=== PATIENT | female | born 1960 | race Caucasian/White ===

== ENCOUNTER 2018-08-29 20:11 | Inpatient (IN) | payer OTHER ==
[~2018-08-29] VITALS: Ht 160 cm; Wt 144.1 kg
[~2018-08-29 20:11] MED LIST: ASPI325T4 PO; CARV3.1240 PO; CLOP75TA28 PO; COMIH INH; ESCI5TAB PO; IBUP800T24 PO; LIS10T PO; NOR7.5T PO; SIMV5TAB50 PO
[2018-08-29] MEDS ORDERED: IPRATROPIUM BROM 0.5 MG/2.5ML INH SOL ONE (21:14)
[2018-08-29] MEDS ORDERED: methylPREDNISolone SOD SUCC 125 MG/2 ML VL IV ONE (21:15)
[2018-08-29] MEDS ORDERED: IPRATROPIUM BROM 0.5 MG/2.5ML INH SOL HHN ONE (21:15)
[2018-08-29] MEDS ORDERED: FUROSEMIDE 40 MG/4 ML VIAL IV ONE (21:15)
[2018-08-29] MEDS ORDERED: ALBUTEROL SULF 2.5 MG/0.5ML(0.5%) NEB SOLN HHN ONE (21:15)
[2018-08-29 21:45] LABS: Basophils # (auto) 0.1 uL; Basophils % (auto) 1.1 % (0.0-2.0); Eosinophils # (auto) 0.1 uL; Eosinophils % (auto) 2.1 % (0.0-7.0); Hematocrit 36.5 % (36.0-46.0); Hemoglobin 12.2 g/dL (12.2-16.2); Lymphocytes # (auto) 1.7 uL; Lymphocytes % (auto) 25.5 % (10.0-50.0); Mean Corpuscular Hgb Conc. 33.4 g/dL (32.0-36.0); Mean Corpuscular Volume 89.8 fL (80.0-100.0); Monocytes # (auto) 0.5 uL; Monocytes % (auto) 7.4 % (0.0-12.0); Neutrophils # (auto) 4.3 uL; Neutrophils % (auto) 63.9 % (37.0-80.0); Platelet Count (auto) 184 10^3/uL (140-450); Red Blood Cells 4.06 10^6/uL (4.0-5.20); Red Cell Distribution Width 14.4 % (11.8-14.3); White Blood Cell 6.8 10^3/uL (4.4-10.8)
[2018-08-29 22:03] LABS: Alanine Aminotransferase 29 U/L (13-56); Albumin 3.1 g/dL (3.4-5.0); Anion Gap 4 (5-15); Aspartate Aminotransferase 15 U/L (15-37); BUN/Creatinine Ratio 26.9; Blood Urea Nitrogen 25 mg/dL (7-18); Carbon Dioxide 27 mmol/L (21-32); Chloride 112 mmol/L (98-107); GFR African American 79 mL/min; GFR Non-African American 65 mL/min; Glucose 129 mg/dL (74-106); Potassium 4.3 mmol/L (3.5-5.1); Sodium 143 mmol/L (136-145)
[2018-08-29 22:08] LABS: Alkaline Phosphatase 97 U/L (45-117); Bilirubin, Total 0.4 mg/dL (0.2-1.0); Total Protein 6.8 g/dL (6.4-8.2)
[2018-08-29 22:45] LABS: Urine Bacteria FEW /hpf (None Seen); Urine Blood Negative /uL (Negative); Urine Mucus FEW (None Seen); Urine Specific Gravity 1.009 (1.001-1.035); Urine WBC 2 /hpf (0 - 5)
[2018-08-30] MEDS ORDERED: ONDANSETRON HCL 4 MG/2 ML VIAL IV PRN (04:00)
[2018-08-30] MEDS ORDERED: ACETAMINOPHEN 500 MG TAB PO PRN (04:00)
[2018-08-30 04:09] VITALS: BP 139/74
[2018-08-30] MEDS: HYDROcodone-ACET 5/325MG TAB PO PRN ×2 (05:04→11:50)
[2018-08-30] MEDS: IPRATROPIUM BROM 0.5 MG/2.5ML INH SOL NEB SCH ×5 (05:30→22:24)
[2018-08-30] MEDS: ALBUTEROL SULF 2.5 MG/0.5ML(0.5%) NEB SOLN NEB SCH ×5 (05:30→22:24)
[2018-08-30 07:21] LABS: Basophils # (auto) 0 uL; Basophils % (auto) 0.1 % (0.0-2.0); Eosinophils # (auto) 0 uL; Hematocrit 37.9 % (36.0-46.0); Lymphocytes # (auto) 0.8 uL; Lymphocytes % (auto) 11.2 % (10.0-50.0); Mean Corpuscular Hemoglobin 30.9 pg (28.0-32.0); Mean Corpuscular Hgb Conc. 34.4 g/dL (32.0-36.0); Mean Corpuscular Volume 89.7 fL (80.0-100.0); Monocytes # (auto) 0 uL; Monocytes % (auto) 0.7 % (0.0-12.0); Neutrophils # (auto) 6.2 uL; Nucleated Red Blood Cells % 0.5 %; Platelet Count (auto) 193 10^3/uL (140-450); Red Blood Cells 4.22 10^6/uL (4.0-5.20); Red Cell Distribution Width 14.2 % (11.8-14.3)
[2018-08-30 07:29] LABS: Calcium 10.6 mg/dL (8.5-10.1); Potassium 4.1 mmol/L (3.5-5.1)
[2018-08-30] MEDS: CARVEDILOL 3.125 MG TAB PO SCH ×2 (08:42→18:00)
[2018-08-30] MEDS ORDERED: ASPirin-EC 325mg tab PO SCH (10:00)
[2018-08-30] MEDS: CLOPIDOGREL BISULFATE 75 MG TAB PO SCH (10:00)
[2018-08-30] MEDS: LISINOPRIL 10 MG TAB PO SCH (10:00)
[2018-08-30] MEDS: FUROSEMIDE 40 MG/4 ML VIAL IV SCH (10:00)
[2018-08-30 13:00] VITALS: BP 125/55
[2018-08-30] MEDS ORDERED: PANTOPRAZOLE 40 MG TAB PO ONE (14:45)
[2018-08-30 16:54] VITALS: BP 115/60
[2018-08-30 20:14] VITALS: BP 117/73
[2018-08-30] MEDS: THROAT LOZENGES(CEPASTAT) MT PRN (23:02)
[2018-08-31] MEDS: ALBUTEROL SULF 2.5 MG/0.5ML(0.5%) NEB SOLN NEB SCH ×6 (02:00→22:06)
[2018-08-31] MEDS: IPRATROPIUM BROM 0.5 MG/2.5ML INH SOL NEB SCH ×6 (02:00→22:06)
[2018-08-31 04:33] VITALS: BP 107/78
[2018-08-31 05:52] LABS: Basophils # (auto) 0 uL; Basophils % (auto) 0.4 % (0.0-2.0); Eosinophils # (auto) 0 uL; Eosinophils % (auto) 0.4 % (0.0-7.0); Hematocrit 38.2 % (36.0-46.0); Hemoglobin 12.9 g/dL (12.2-16.2); Lymphocytes # (auto) 2.4 uL; Lymphocytes % (auto) 22.5 % (10.0-50.0); Mean Corpuscular Hemoglobin 30.4 pg (28.0-32.0); Mean Corpuscular Hgb Conc. 33.6 g/dL (32.0-36.0); Mean Corpuscular Volume 90.4 fL (80.0-100.0); Monocytes # (auto) 0.6 uL; Monocytes % (auto) 6.1 % (0.0-12.0); Neutrophils # (auto) 7.5 uL; Neutrophils % (auto) 70.6 % (37.0-80.0); Platelet Count (auto) 193 10^3/uL (140-450); Red Blood Cells 4.23 10^6/uL (4.0-5.20); Red Cell Distribution Width 14.5 % (11.8-14.3); White Blood Cell 10.6 10^3/uL (4.4-10.8)
[2018-08-31 06:31] LABS: Anion Gap 6 (5-15); BUN/Creatinine Ratio 27.3; Blood Urea Nitrogen 30 mg/dL (7-18); Calcium 10.3 mg/dL (8.5-10.1); Carbon Dioxide 31 mmol/L (21-32); Chloride 102 mmol/L (98-107); Cholesterol 165 mg/dL (< 200); GFR African American 65 mL/min; GFR Non-African American 54 mL/min; Glucose 126 mg/dL (74-106); Magnesium 2.2 mg/dL (1.6-2.6); Potassium 4.2 mmol/L (3.5-5.1); Sodium 139 mmol/L (136-145); Triglycerides 68 mg/dL (< 150)
[2018-08-31 06:36] LABS: HDL Cholesterol 61 mg/dL (40-59); LDL Cholesterol 98 mg/dL (< 100)
[2018-08-31 08:15] VITALS: BP 132/72
[2018-08-31] MEDS: CARVEDILOL 3.125 MG TAB PO SCH ×2 (08:30→18:00)
[2018-08-31] MEDS: PANTOPRAZOLE 40 MG TAB PO SCH (10:00)
[2018-08-31] MEDS: FUROSEMIDE 40 MG/4 ML VIAL IV SCH (10:00)
[2018-08-31] MEDS: LISINOPRIL 10 MG TAB PO SCH (10:00)
[2018-08-31] MEDS: ENOXAPARIN SOD 40 MG/0.4 ML SYRINGE SC SCH (10:00)
[2018-08-31] MEDS: CLOPIDOGREL BISULFATE 75 MG TAB PO SCH (10:00)
[2018-08-31] MEDS ORDERED: ASPirin-EC 325mg tab PO SCH (10:00)
[2018-08-31 13:00] VITALS: BP 130/74
[2018-08-31] MEDS: THROAT LOZENGES(CEPASTAT) MT PRN ×2 (14:14→22:00)
[2018-08-31] MEDS: HYDROcodone-ACET 5/325MG TAB PO PRN (14:14)
[2018-08-31 16:58] VITALS: BP 94/63
[2018-08-31 22:00] VITALS: BP 79/49
[2018-09-01] MEDS: IPRATROPIUM BROM 0.5 MG/2.5ML INH SOL NEB SCH ×6 (02:00→22:24)
[2018-09-01] MEDS: ALBUTEROL SULF 2.5 MG/0.5ML(0.5%) NEB SOLN NEB SCH ×6 (02:00→22:24)
[2018-09-01 05:00] VITALS: BP 126/72
[2018-09-01 06:04] LABS: BUN/Creatinine Ratio 29.6; Calcium 10.4 mg/dL (8.5-10.1); Potassium 4.8 mmol/L (3.5-5.1)
[2018-09-01] MEDS: CARVEDILOL 3.125 MG TAB PO SCH ×2 (08:00→18:00)
[2018-09-01 08:44] VITALS: BP 98/46
[2018-09-01] MEDS: ENOXAPARIN SOD 40 MG/0.4 ML SYRINGE SC SCH (09:23)
[2018-09-01] MEDS: PANTOPRAZOLE 40 MG TAB PO SCH (09:24)
[2018-09-01] MEDS: FUROSEMIDE 40 MG/4 ML VIAL IV SCH (09:24)
[2018-09-01] MEDS: CLOPIDOGREL BISULFATE 75 MG TAB PO SCH (09:24)
[2018-09-01] MEDS: LISINOPRIL 10 MG TAB PO SCH (09:31)
[2018-09-01] MEDS: ASPirin-EC 81 mg tab PO SCH (09:50)
[2018-09-01] MEDS: HYDROcodone-ACET 5/325MG TAB PO PRN (09:50)
[2018-09-01 13:00] VITALS: BP 104/54
[2018-09-01] MEDS: SODIUM CHLORIDE 0.9% 1,000 ML IV SCH (14:07)
[2018-09-01] MEDS: THROAT LOZENGES(CEPASTAT) MT PRN (15:46)
[2018-09-01 16:15] VITALS: BP 96/61
[2018-09-01 19:27] VITALS: BP 96/61
[2018-09-01 22:11] VITALS: BP 112/75
[2018-09-02] MEDS: ALBUTEROL SULF 2.5 MG/0.5ML(0.5%) NEB SOLN NEB SCH ×6 (02:20→22:08)
[2018-09-02] MEDS: IPRATROPIUM BROM 0.5 MG/2.5ML INH SOL NEB SCH ×6 (02:20→22:08)
[2018-09-02] MEDS: HYDROcodone-ACET 5/325MG TAB PO PRN ×3 (03:12→22:05)
[2018-09-02] MEDS: THROAT LOZENGES(CEPASTAT) MT PRN ×3 (03:16→21:28)
[2018-09-02] MEDS: SODIUM CHLORIDE 0.9% 1,000 ML IV SCH ×2 (04:25→21:05)
[2018-09-02 05:44] VITALS: BP 94/79
[2018-09-02] MEDS ORDERED: VANCOMYCIN PER PHARMACY 0 MG IV SCH (06:00)
[2018-09-02] MEDS ORDERED: VANCOMYCIN 1GM/250ML 250 ML IV ONE (06:00)
[2018-09-02 07:26] LABS: Albumin 3.2 g/dL (3.4-5.0); BUN/Creatinine Ratio 28.4; Calcium 10.1 mg/dL (8.5-10.1); Potassium 4.4 mmol/L (3.5-5.1)
[2018-09-02 07:29] LABS: Bilirubin, Total 0.7 mg/dL (0.2-1.0); Total Protein 7.1 g/dL (6.4-8.2)
[2018-09-02] MEDS: CARVEDILOL 3.125 MG TAB PO SCH ×2 (08:09→17:30)
[2018-09-02] MEDS: VANCOMYCIN 1,250 MG in D5W 5% 250 ML IV SCH ×2 (08:39→21:05)
[2018-09-02 09:00] VITALS: BP 124/73
[2018-09-02] MEDS: CLOPIDOGREL BISULFATE 75 MG TAB PO SCH (09:35)
[2018-09-02] MEDS: ASPirin-EC 81 mg tab PO SCH (09:35)
[2018-09-02] MEDS: PANTOPRAZOLE 40 MG TAB PO SCH (09:35)
[2018-09-02] MEDS: ENOXAPARIN SOD 40 MG/0.4 ML SYRINGE SC SCH (09:35)
[2018-09-02] MEDS: FUROSEMIDE 20 MG TAB PO SCH (09:36)
[2018-09-02 12:00] VITALS: BP 115/69
[2018-09-02 16:00] VITALS: BP 110/77
[2018-09-02 22:00] VITALS: BP 140/69
[2018-09-03] MEDS: ALBUTEROL SULF 2.5 MG/0.5ML(0.5%) NEB SOLN NEB SCH ×4 (02:26→13:30)
[2018-09-03] MEDS: IPRATROPIUM BROM 0.5 MG/2.5ML INH SOL NEB SCH ×4 (02:27→13:30)
[2018-09-03 05:00] VITALS: BP 109/51
[2018-09-03] MEDS: HYDROcodone-ACET 5/325MG TAB PO PRN (06:41)
[2018-09-03 07:51] LABS: Albumin 3.2 g/dL (3.4-5.0); BUN/Creatinine Ratio 22.2; Calcium 10.4 mg/dL (8.5-10.1); Potassium 4.5 mmol/L (3.5-5.1)
[2018-09-03 07:54] LABS: Bilirubin, Total 0.8 mg/dL (0.2-1.0); Total Protein 7.1 g/dL (6.4-8.2)
[2018-09-03 08:00] VITALS: BP 112/65
[2018-09-03 09:00] VITALS: BP 123/82
[2018-09-03] MEDS: PANTOPRAZOLE 40 MG TAB PO SCH (09:15)
[2018-09-03] MEDS: ASPirin-EC 81 mg tab PO SCH (09:16)
[2018-09-03] MEDS: CLOPIDOGREL BISULFATE 75 MG TAB PO SCH (09:16)
[2018-09-03] MEDS: FUROSEMIDE 20 MG TAB PO SCH (09:17)
[2018-09-03] MEDS: CARVEDILOL 3.125 MG TAB PO SCH ×2 (09:17→17:35)
[2018-09-03] MEDS: ENOXAPARIN SOD 40 MG/0.4 ML SYRINGE SC SCH (09:18)
[2018-09-03] MEDS: VANCOMYCIN 1,250 MG in D5W 5% 250 ML IV SCH (09:23)
[2018-09-03] MEDS ORDERED: FUR20T PO (11:42)
[2018-09-03] MEDS ORDERED: AMOX-263 PO (11:42)
[2018-09-03] MEDS ORDERED: METF-370 PO (11:48)
[2018-09-03] MEDS ORDERED: metFORMIN HYDROCHLORIDE 500 MG TAB PO ONE (12:00)
[2018-09-03] MEDS ORDERED: AMOXICILLIN/CLAVUL 875 MG TAB PO ONE (12:00)
[2018-09-03 12:58] VITALS: BP 124/71
[2018-09-03 13:07] VITALS: BP 123/82
[2018-09-03] MEDS: SODIUM CHLORIDE 0.9% 1,000 ML IV SCH (13:45)
[2018-09-03 17:00] VITALS: BP 118/72
== END 2018-09-03 18:46 | disposition home health service (06) | DRG 291 ==
LOC: EDBD 20:11 → ER 20:21 → TELE 20:22 → TELE-EAST 08-30 10:38
PROVIDERS: ADMIT Nurse Practitioner Family; ATTEND Internal Medicine
DX: I11.0 Hypertensive heart disease with heart failure (principal); N17.0 Acute kidney failure with tubular necrosis; J96.20 Acute and chronic respiratory failure, unspecified whether with hypoxia or hypercapnia; E44.1 Mild protein-calorie malnutrition; Z68.43 Body mass index [BMI] 50.0-59.9, adult; I50.43 Acute on chronic combined systolic (congestive) and diastolic (congestive) heart failure; J44.9 Chronic obstructive pulmonary disease, unspecified; E78.5 Hyperlipidemia, unspecified; F32.9 Major depressive disorder, single episode, unspecified; F41.9 Anxiety disorder, unspecified; K21.9 Gastro-esophageal reflux disease without esophagitis; Z99.81 Dependence on supplemental oxygen; Z88.2 Allergy status to sulfonamides; Z88.8 Allergy status to other drugs, medicaments and biological substances; E11.9 Type 2 diabetes mellitus without complications; E66.01 Morbid (severe) obesity due to excess calories; F17.210 Nicotine dependence, cigarettes, uncomplicated; G47.33 Obstructive sleep apnea (adult) (pediatric); I25.10 Atherosclerotic heart disease of native coronary artery without angina pectoris; T50.2X5A Adverse effect of carbonic-anhydrase inhibitors, benzothiadiazides and other diuretics, initial encounter; Y92.89 Other specified places as the place of occurrence of the external cause; Z79.82 Long term (current) use of aspirin; Z82.5 Family history of asthma and other chronic lower respiratory diseases; Z91.19 Patient's noncompliance with other medical treatment and regimen; Z83.511 Family history of glaucoma; I25.2 Old myocardial infarction
CPT/HCPCS: 36415; 36600; 70486; 71045; 80048; 80053; 80061; 81001; 82805; 83036; 83735; 83880; 84484; 85025; 87040; 87077; 87186; 87804; 93005; 93306; 93970; 94640; 96374; 96375; 96376; 97110; 97116; 97530; G0378; J7060

== ENCOUNTER 2018-10-28 18:06 | Emergency (ER) | payer OTHER ==
[~2018-10-28] VITALS: Ht 167.6 cm; Wt 100.7 kg
[~2018-10-28 18:06] MED LIST changes: +AMOX-263 PO; +ATOR20TA PO; -CARV3.1240 PO; +FUR20T PO; +METF-370 PO; -SIMV5TAB50 PO
[2018-10-28 18:19] VITALS: BP 148/72
[2018-10-28 19:45] LABS: Basophils # (auto) 0 uL; Basophils % (auto) 0.3 % (0.0-2.0); Eosinophils # (auto) 0.2 uL; Eosinophils % (auto) 1.7 % (0.0-7.0); Hematocrit 38.2 % (36.0-46.0); Hemoglobin 12.9 g/dL (12.2-16.2); Lymphocytes # (auto) 1.5 uL; Lymphocytes % (auto) 15.3 % (10.0-50.0); Mean Corpuscular Hemoglobin 29.4 pg (28.0-32.0); Mean Corpuscular Hgb Conc. 33.9 g/dL (32.0-36.0); Mean Corpuscular Volume 86.8 fL (80.0-100.0); Monocytes # (auto) 0.7 uL; Monocytes % (auto) 7.4 % (0.0-12.0); Neutrophils # (auto) 7.1 uL; Neutrophils % (auto) 75.3 % (37.0-80.0); Nucleated Red Blood Cells % 0.1 %; Platelet Count (auto) 231 10^3/uL (140-450); Red Cell Distribution Width 13.6 % (11.8-14.3); White Blood Cell 9.5 10^3/uL (4.4-10.8)
[2018-10-28 19:59] LABS: Albumin 3.5 g/dL (3.4-5.0); Anion Gap 5 (5-15); Blood Urea Nitrogen 18 mg/dL (7-18); Calcium 9.5 mg/dL (8.5-10.1); Carbon Dioxide 29 mmol/L (21-32); Chloride 101 mmol/L (98-107); Glucose 149 mg/dL (74-106); Potassium 3.7 mmol/L (3.5-5.1); Sodium 135 mmol/L (136-145)
[2018-10-28 20:05] LABS: Alanine Aminotransferase 36 U/L (13-56); Alkaline Phosphatase 101 U/L (45-117); Aspartate Aminotransferase 22 U/L (15-37); BUN/Creatinine Ratio 18.9; Bilirubin, Total 0.4 mg/dL (0.2-1.0); GFR African American 77 mL/min; GFR Non-African American 64 mL/min; Total Protein 7.6 g/dL (6.4-8.2)
== END 2018-10-29 03:00 | disposition left against medical advice (07) ==
LOC: ER 18:06 → EDBD 18:06 → ER 10-29 03:00
CPT/HCPCS: 36415; 80053; 84484; 85025; 93005

== ENCOUNTER 2022-09-15 16:25 | Inpatient (IN) | payer OTHER ==
[~2022-09-15] VITALS: Ht 161.3 cm; Wt 137.7 kg
[~2022-09-15 16:25] MED LIST changes: -IBUP800T24 PO; +IBUP800T27 PO
[2022-09-15] MEDS ORDERED: methylPREDNISolone SOD SUCC 125 MG/2 ML VL IV ONE (17:00)
[2022-09-15 18:10] LABS: Basophils # (auto) 0 10 ^3/uL (0-0.2); Basophils % (auto) 0.3 % (0.0-2.0); Eosinophils # (auto) 0.2 10 ^3/uL (0-0.8); Eosinophils % (auto) 3.6 % (0.0-7.0); Hematocrit 34.8 % (36.0-46.0); Hemoglobin 11.4 g/dL (12.2-16.2); Lymphocytes % (auto) 21.8 % (10.0-50.0); Mean Corpuscular Hemoglobin 28.2 pg (28.0-32.0); Mean Corpuscular Hgb Conc. 32.7 g/dL (32.0-36.0); Mean Corpuscular Volume 86.3 fL (80.0-100.0); Monocytes # (auto) 0.4 10 ^3/uL (0-1.3); Monocytes % (auto) 8.1 % (0.0-12.0); Neutrophils # (auto) 2.9 10 ^3/uL (1.6-8.6); Neutrophils % (auto) 66.2 % (37.0-80.0); Nucleated Red Blood Cells % 0.3 %; Red Blood Cells 4.03 10^6/uL (4.0-5.20); Red Cell Distribution Width 14.5 % (11.8-14.3); White Blood Cell 4.4 10^3/uL (4.4-10.8)
[2022-09-15] MEDS ORDERED: cefTRIAXone 1GM/50ML D5W 50 ML IV ONE (18:15)
[2022-09-15] MEDS ORDERED: AZITHROMYCIN 500MG/ 250ML 250 ML IV ONE (18:15)
[2022-09-15 18:29] LABS: Albumin 3.3 g/dL (3.4-5.0); Calcium 9.3 mg/dL (8.5-10.1)
[2022-09-15 18:33] LABS: Bilirubin, Total 0.6 mg/dL (0.2-1.0); Total Protein 7.1 g/dL (6.4-8.2)
[2022-09-15] MEDS ORDERED: DOCUSATE SOD 100 MG CAP PO PRN (20:15)
[2022-09-15] MEDS ORDERED: ONDANSETRON HCL 4 MG/2 ML VIAL IV PRN (20:15)
[2022-09-15] MEDS ORDERED: DEXTROSE (50%) 50ML SYRG IV PRN (20:15)
[2022-09-15] MEDS ORDERED: ACETAMINOPHEN 325 MG TAB PO PRN (20:15)
[2022-09-15] MEDS ORDERED: MORPHINE SULFATE INJ 2 MG/ml SYRG IV PRN (21:15)
[2022-09-15] MEDS ORDERED: NITROGLYCERIN 0.4 MG SL TAB SL PRN (21:15)
[2022-09-15] MEDS: SODIUM CHLOR 0.9% PF (SALINE LOCK) 10ML VIAL/SYR IV SCH (22:00)
[2022-09-15] MEDS: ACCU-CHEK COMFORT CURVE STRIP VI SCH (22:45)
[2022-09-15] MEDS: InsuLIN REG 1unit/0.01ml Soln (100units/ml) SC SCH (22:46)
[2022-09-15] MEDS: FAMOTIDINE (10MG/ML) 2ML VL IV SCH (23:14)
[2022-09-16] MEDS: hydrALAZINE HCL 20 MG/ML VL IV SCH ×2 (02:31→12:00)
[2022-09-16] MEDS: HYDROcodone-ACET 5/325MG TAB PO PRN ×5 (02:51→23:26)
[2022-09-16 03:52] LABS: Basophils # (auto) 0 10 ^3/uL (0-0.2); Basophils % (auto) 0.6 % (0.0-2.0); Eosinophils # (auto) 0.1 10 ^3/uL (0-0.8); Eosinophils % (auto) 2.8 % (0.0-7.0); Hematocrit 34.6 % (36.0-46.0); Hemoglobin 11.4 g/dL (12.2-16.2); Lymphocytes # (auto) 1.1 10 ^3/uL (0.4-5.4); Lymphocytes % (auto) 23.6 % (10.0-50.0); Mean Corpuscular Hemoglobin 28.5 pg (28.0-32.0); Mean Corpuscular Volume 86.5 fL (80.0-100.0); Monocytes # (auto) 0.4 10 ^3/uL (0-1.3); Monocytes % (auto) 9.4 % (0.0-12.0); Neutrophils % (auto) 63.6 % (37.0-80.0); Nucleated Red Blood Cells % 0.1 %; Red Cell Distribution Width 14.5 % (11.8-14.3); White Blood Cell 4.7 10^3/uL (4.4-10.8)
[2022-09-16 03:57] LABS: Albumin 3.3 g/dL (3.4-5.0); BUN/Creatinine Ratio 12.9; Calcium 9.4 mg/dL (8.5-10.1); Potassium 3.7 mmol/L (3.5-5.1)
[2022-09-16 03:59] LABS: Bilirubin, Total 0.6 mg/dL (0.2-1.0); Total Protein 7.8 g/dL (6.4-8.2)
[2022-09-16] MEDS ORDERED: methylPREDNISolone SOD SUCC 40 MG/ML VL IV SCH (06:00)
[2022-09-16] MEDS: ACCU-CHEK COMFORT CURVE STRIP VI SCH ×4 (06:26→22:04)
[2022-09-16] MEDS: InsuLIN REG 1unit/0.01ml Soln (100units/ml) SC SCH ×4 (06:26→22:00)
[2022-09-16] MEDS: FAMOTIDINE (10MG/ML) 2ML VL IV SCH ×2 (09:34→21:46)
[2022-09-16] MEDS: SODIUM CHLOR 0.9% PF (SALINE LOCK) 10ML VIAL/SYR IV SCH ×3 (10:00→21:51)
[2022-09-16] MEDS: CLOPIDOGREL BISULFATE 75 MG TAB PO SCH (10:00)
[2022-09-16] MEDS ORDERED: hydrALAZINE HCL 20 MG/ML VL IV PRN (13:30)
[2022-09-16] MEDS: AZITHROMYCIN 500MG/ 250ML 250 ML IV SCH (18:49)
[2022-09-16 19:06] VITALS: BP 158/71
[2022-09-16 20:20] VITALS: BP 145/70
[2022-09-16 22:22] VITALS: BP 145/70
[2022-09-17] MEDS: HYDROcodone-ACET 5/325MG TAB PO PRN ×3 (03:55→21:56)
[2022-09-17 05:40] VITALS: BP 144/81
[2022-09-17] MEDS: SODIUM CHLOR 0.9% PF (SALINE LOCK) 10ML VIAL/SYR IV SCH ×3 (06:00→22:05)
[2022-09-17] MEDS: ACCU-CHEK COMFORT CURVE STRIP VI SCH ×4 (06:50→22:06)
[2022-09-17] MEDS: InsuLIN REG 1unit/0.01ml Soln (100units/ml) SC SCH ×4 (06:50→22:00)
[2022-09-17] MEDS: FAMOTIDINE (10MG/ML) 2ML VL IV SCH ×2 (08:54→21:56)
[2022-09-17] MEDS: ASPirin 81 mg TAB PO SCH ×2 (08:54→09:45)
[2022-09-17] MEDS: CLOPIDOGREL BISULFATE 75 MG TAB PO SCH (08:54)
[2022-09-17 09:00] VITALS: BP_SYST 129; BP_SYST 150; BP_DIAS 66; BP_DIAS 80
[2022-09-17] MEDS: LORazepam 0.5 MG TAB PO SCH ×3 (09:55→21:55)
[2022-09-17 13:00] VITALS: BP 137/71
[2022-09-17 16:33] VITALS: BP 119/61
[2022-09-17] MEDS: AZITHROMYCIN 500MG/ 250ML 250 ML IV SCH (17:08)
[2022-09-17 22:00] VITALS: BP 155/71
[2022-09-18] MEDS: HYDROcodone-ACET 5/325MG TAB PO PRN (05:35)
[2022-09-18] MEDS: LORazepam 0.5 MG TAB PO SCH (05:36)
[2022-09-18] MEDS: SODIUM CHLOR 0.9% PF (SALINE LOCK) 10ML VIAL/SYR IV SCH (05:38)
[2022-09-18 05:48] VITALS: BP 129/71
[2022-09-18] MEDS: InsuLIN REG 1unit/0.01ml Soln (100units/ml) SC SCH ×2 (06:51→11:30)
[2022-09-18] MEDS: ACCU-CHEK COMFORT CURVE STRIP VI SCH ×2 (06:52→11:32)
[2022-09-18 08:00] VITALS: BP 134/58
[2022-09-18] MEDS ORDERED: LEVA1NEB5 IN (08:56)
[2022-09-18] MEDS ORDERED: AZIT500T66 PO (08:56)
[2022-09-18] MEDS ORDERED: LORA0.5T20 PO (08:56)
[2022-09-18] MEDS: FAMOTIDINE (10MG/ML) 2ML VL IV SCH (09:15)
[2022-09-18] MEDS: CLOPIDOGREL BISULFATE 75 MG TAB PO SCH (09:15)
[2022-09-18] MEDS: ASPirin 81 mg TAB PO SCH (09:15)
[2022-09-18 12:00] VITALS: BP 148/63
== END 2022-09-18 13:10 | disposition hospice, home (50) | DRG 177 ==
LOC: EDUNIT# 16:25 → ER 16:25 → EDBD 16:25 → TELE 21:14 → TELE-CENTR 09-16 19:00
PROVIDERS: ADMIT Nurse Practitioner Family; ATTEND Family Medicine
DX: J69.0 Pneumonitis due to inhalation of food and vomit (principal); I50.41 Acute combined systolic (congestive) and diastolic (congestive) heart failure; J96.21 Acute and chronic respiratory failure with hypoxia; I24.9 Acute ischemic heart disease, unspecified; J44.1 Chronic obstructive pulmonary disease with (acute) exacerbation; J44.0 Chronic obstructive pulmonary disease with (acute) lower respiratory infection; J98.11 Atelectasis; Z68.43 Body mass index [BMI] 50.0-59.9, adult; I11.0 Hypertensive heart disease with heart failure; E66.01 Morbid (severe) obesity due to excess calories; E78.00 Pure hypercholesterolemia, unspecified; F41.9 Anxiety disorder, unspecified; Z20.822 Contact with and (suspected) exposure to COVID-19; I25.2 Old myocardial infarction; Z88.8 Allergy status to other drugs, medicaments and biological substances
CPT/HCPCS: 36415; 71045; 80053; 82962; 83605; 83880; 84484; 85025; 87040; 87426; 93005; 96365; 96368; 96375; G0378; J0696; J2405; J3490

== ENCOUNTER 2025-02-10 17:45 | Emergency (ER) | payer OTHER ==
[~2025-02-10] VITALS: Ht 160 cm; Wt 100.0 kg
[~2025-02-10 17:45] MED LIST changes: -ASPI325T4 PO; +ASPI325T6 PO; +AZIT500T66 PO; -FUR20T PO; +FURO20TA4 PO; +IBUP-1456 PO; -IBUP800T27 PO; +LEVA1NEB5 IN; +LORA-1121 PO
--- NOTE | 2025-02-10 18:30 | ED.PDOC ---
History of Present Illness HPI Comments 64 y/o morbidly obese F, with a Hx of COPD, CHF, VA, PTCA, TIA, GERD, HLD, HTN, and tonsillitis, is BIBA for c/o throat pain, lower extremity swelling and left- facial swelling, today. Per EMS report, patient reports phone-line health nurse calling on patient's behalf for evaluation after endorsing on worsening symptoms for the past several days. Patient states on recent tonsillitis diagnosis but was told on being unqualified for a tonsillectomy, due to extensive cardiac/respiratory medical history. She denies having any chest pain, fever, chills, congestion, or other associated symptoms or modifiers at this time. Patient does complain of shortness a breath and was on 2 L of O2 at time of evaluation. Time Seen by MD: 18:20 Primary Care Provider: SHASHI Reviewed Notes: Nurses Notes, Loan Administrator Notes, Medications, Allergies Allergies: Coded Allergies: Albuterol (Verified Allergy, Unknown, 10/16/18) RESPIRATORY CAME DOWN TO PHARMACY AND ASKED TO PUT ALBUTEROL ON HOLD DUE TO ALLERGY. Latex (Unverified Allergy, Unknown, 09/21/15) Sulfate (Unverified Allergy, Unknown, 09/21/15) Amoxicillin (Verified Adverse Reaction, Intermediate, 09/03/18) Clavulanic Acid (Verified Adverse Reaction, Intermediate, 09/03/18) Prednisone (Verified Adverse Reaction, Intermediate, 09/03/18) Home Meds Active Scripts Azithromycin (Azithromycin) 500 Mg Tab, 1 TAB PO DAILY, #7 TAB Prov:VANCE WATERMAN MD 09/18/22 Lorazepam (ATIVAN TABLET) 0.5 Mg Tb, 1 TAB PO BID, #60 TAB Prov:VANCE WATERMAN MD 09/18/22 Levalbuterol Hydrochloride (Xopenex) 1.25 Mg/3 Ml Neb, 1.25 MG IN QID PRN, #1 INH Prov:VANCE WATERMAN MD 09/18/22 Atorvastatin Calcium (Lipitor) 20 Mg Tab, 1 TAB PO DAILY, #30 TAB Prov:GIO SETHI MD 10/16/18 Metformin Hydrochloride (Metformin Hcl) 500 Mg Tab, 1 TAB PO BID, #60 TAB Prov:GIO SETHI MD 11/1/18 Amoxicillin & Pot Clavulanate (Augmentin) 875 Mg Tab, 1 TAB PO BID, #14 TAB Prov:GIO SETHI MD 09/03/18 Furosemide (Furosemide) 20 Mg Tab, 20 MG PO DAILY, #30 TAB Prov:GIO SETHI MD 09/03/18 Reported Medications Hydrocodone-Acetaminophen ([place] 7.5/325MG) 1 Tab Tb, 1 TAB PO TIDP PRN for MODERATE PAIN 09/21/15 Ibuprofen (Ibuprofen) 800 Mg Tab, 1 TAB PO TID for MODERATE PAIN, #90 TAB 1 Refill 09/21/15 Escitalopram Oxalate (Lexapro) 5 Mg Tab, 1 TAB PO DAILY, #30 TAB 2 Refills 09/21/15 Ipratropium-Albuterol (COMBIVENT INHALER) 1 In Ih, 2 PUFF INH QID, #14.7 GRAMS 11 Refills 09/21/15 Clopidogrel Bisulfate (Plavix) 75 Mg Tab, 1 TAB PO DAILY, #90 TAB 1 Refill 09/21/15 Lisinopril (ZESTRIL TABLET) 10 Mg Tb, 1 TAB PO DAILY, #30 TAB 5 Refills 09/21/15 Aspirin (Aspirin) 325 Mg Tab, 1 TAB PO DAILY, #30 TAB 5 Refills 09/21/15 Information Source: Patient, Emergency Med Personnel Mode of Arrival: EMS Severity: Moderate Timing: Days Duration: Since onset Prehospital treatment: 12 Lead EKG, Computer Aided Design Designer Past Medical History PAST MEDICAL HISTORY: Anxiety, CHF, COPD, GERD, High Lipids, HTN, VA, TIA Past Medical History (Other): tonsillitis Surgical History: PTCA CORPORATE SECURITY MANAGER History: No Pertinent CORPORATE SECURITY MANAGER History Family History Family History: Unobtainable Social History Smoker: Non-Smoker Alcohol: Denies ETOH Use Drugs: Denies Drug Use Lives In: Home Constitutional: reports: fatigue, weakness; denies: chills, diaphoresis, fever, malaise, sweats, others EENTM: reports: throat pain, throat swelling; denies: blurred vision, double vision, ear bleeding, ear discharge, ear drainage, ear pain, ear ringing, eye pain, eye redness, hearing loss, mouth pain, mouth swelling, nasal discharge, nose bleeding, nose congestion, nose pain, photophobia, tearing, voice changes, others Respiratory: denies: cough, hemoptysis, orthopnea, SOB at rest, shortness of breath, SOB with excertion, stridor, wheezing, others Cardiovascular: denies: chest pain, dizzy spells, diaphoresis, Dyspnea on exertion, edema, irregular heart beat, left arm pain, lightheadedness, palpitations, PND, syncope, others Gastrointestinal: denies: abdomen distended, abdominal pain, blood streaked bowels, constipated, diarrhea, dysphagia, difficulty swallowing, hematemesis, melena, nausea, poor appetite, poor fluid intake, rectal bleeding, rectal pain, vomiting, others Genitourinary: denies: abnormal vagina bleeding, burning, dyspareunia, dysuria, flank pain, frequency, hematuria, incontinence, pain, , vagina discharge, urgency, others Neurological: denies: dizziness, fainting, headache, left sided numbness, left sided weakness, numbness, paresthesia, pre-existing deficit, right sided numbness, right sided weakness, seizure, speech problems, tingling, tremors, weakness, others Musculoskeletal: reports: muscle pain, muscle stiffness, neck pain; denies: back pain, gout, joint pain, joint swelling, others Integumetry: denies: bruises, change in color, change in hair/nails, dryness, laceration, lesions, lumps, rash, wounds, others Allergic/Immunocompromised: denies: Difficulty Healing, Frequent Infections, Hives, Itching, others Hematologic/Lymphatic: denies: anemia, blood clots, easy bleeding, easy bruising, swollen glands, others Endocrine: denies: excessive hunger, excessive sweating, excessive thirst, excessive urination, flushing, intolerance to cold, intolerance to heat, unexplained weight gain, unexplained weight loss, others Psychiatric: denies: anxiety, bipolar disorder, depression, hopeless, panic disorder, schizophrenia, sleepless, suicidal, others All Other Systems: Reviewed and Negative (Comprehensive review of systems are negative unless otherwise stated in HPI) Physical Exam General Appearance: Moderate Distress (Moderate distress due to throat pain and global pain concerns. Patient appears to be in poor overall health.), Obese HEENT: Normal ENT Inspection, Pharyngeal Erythema (Mildly beefy oropharynx. No definitive exudate noted. Airway appears patent.), TMs Normal Neck: Other (Left-sided anterior cervical chain was tender to palpation and sl ightly edematous at time of evaluation. No erythema noted.) Respiratory: Chest Non-Tender, No Accessory Muscle Use, No Respiratory Distress, Normal Breath Sounds, Wheezing (Mild patchy wheezing appreciated in right middle and upper lobe. Mild rhonchi throughout.) Cardiovascular: No Edema, No JVD, No Murmur, No Gallop, Normal Peripheral Pulses, Regular Rate/Rhythm Breast Exam: Deferred Gastrointestinal: No Organomegaly, Non Tender, No Pulsatile Mass, Normal Bowel Sounds, Soft Genitalia: Deferred Pelvic: Deferred Rectal: Deferred Extremities: NOT DONE Neurologic: Alert, Normal Affect, Normal Mood Cerebellar Function: NOT DONE Reflexes: NOT DONE Skin: Dry, Normal Color, Warm Lymphatic: No Adenopathy Was a procedure done? Was a procedure done?: No Differential Dx Considerations may include: tonsillitis, pharyngitis, esophagitis, CHF, sepsis, electrolyte abnormality, pneumonia X-Ray, Labs, Meds, VS Vital Signs Date Time Temp Pulse Resp B/P (MAP) Pulse Ox O2 Delivery O2 Flow Rate FiO2 02/10/25 18:59 22 94 Nasal Cannula* 2 28 02/10/25 18:37 98.3 73 18 132/61 (84) 97 98.3 02/10/25 18:05 79 Lab Test 02/10/25 23:59 02/10/25 19:46 02/10/25 18:49 Range/Units Urine Color Light-yellow Yellow Urine Clarity Clear Clear Urine pH 5.5 5.0-9.0 Urine Specific [place] 1.018 1.001-1.035 Urine Protein Negative Negative Urine Ketones Negative Negative Urine Blood Negative Negative /uL Urine Nitrite 2+ H Negative Urine Bilirubin Negative Negative Urine Urobilinogen Normal Negative mg/dL Urine Leukocyte Esterase Negative Negative /uL Urine RBC <1 0 - 4 /hpf Urine Microscopic WBC 8 H 0-5 /HPF Urine Squamous Epithelial Cells Few <5 /hpf Urine Bacteria Many H None Seen /hpf Urine Hyaline Casts Few 0 - 2 /lpf Urine Mucus Few None Seen Urine Glucose Normal Normal mg/dL Troponin I High Sensitivity 3 L 3 L </=34 ng/L White Blood Count 8.2 4.4-10.8 10^3/uL Red Blood Count 4.59 4.0-5.20 10^6/uL Hemoglobin 12.6 12.2-16.2 g/dL Hematocrit 37.9 36.0-46.0 % Mean Corpuscular Volume 82.6 80.0-100.0 fL Mean Corpuscular Hemoglobin 27.5 L 28.0-32.0 pg Mean Corpuscular Hemoglobin Concent 33.3 32.0-36.0 g/dL Red Cell Distribution Width 15.5 H 11.8-14.3 % Platelet Count 214 140-450 10^3/uL Mean Platelet Volume 7.6 6.9-10.8 fL Neutrophils (%) (Auto) 60.2 37.0-80.0 % Lymphocytes (%) (Auto) 29.3 10.0-50.0 % Monocytes (%) (Auto) 7.8 0.0-12.0 % Eosinophils (%) (Auto) 2.0 0.0-7.0 % Basophils (%) (Auto) 0.7 0.0-2.0 % Neutrophils # (Auto) 4.9 1.6-8.6 10 ^3/uL Lymphocytes # (Auto) 2.4 0.4-5.4 10 ^3/uL Monocytes # (Auto) 0.6 0-1.3 10 ^3/uL Eosinophils # (Auto) 0.2 0-0.8 10 ^3/uL Basophils # (Auto) 0.1 0-0.2 10 ^3/uL Nucleated Red Blood Cells 0.1 % Sodium Level 141 136-145 mmol/L Potassium Level 4.2 3.5-5.1 mmol/L Chloride Level 109 H 98-107 mmol/L Carbon Dioxide Level 26 20-31 mmol/L Anion Gap 6 5-15 Blood Urea Nitrogen 24 H 9-23 mg/dL Creatinine 1.03 H 0.550-1.02 mg/dL Glomerular Filtration Rate Calc 60 >90 mL/min BUN/Creatinine Ratio 23.3 H 10.0-20.0 Serum Glucose 109 H 74-106 mg/dL Calcium Level 9.9 8.7-10.4 mg/dL Total Bilirubin 0.4 0.2-1.0 mg/dL Aspartate Amino Transferase (AST) 16 13-40 U/L Alanine Aminotransferase (ALT) 17 7-40 U/L Alkaline Phosphatase 101 46-116 U/L B-Type Natriuretic Peptide 12.87 0-100 pg/mL Total Protein 6.5 5.7-8.2 g/dL Albumin 4.0 3.2-4.8 g/dL Lipase 39 12-53 U/L Current Medications Medications (Trade) Dose Ordered Sig/Terra Route Start Time Stop Time Status Last Admin Ipratropium [place] (Atrovent Medneb) 0.5 mg ONCE ONCE NEB 02/10/25 18:15 02/10/25 18:17 DC 02/10/25 18:59 X-Ray, Labs, Meds, VS Comment While studies performed the ED were evaluated by me personally. Serum studies revealed an acute on chronic renal concern as well as a urinary tract infection. Chest x-ray revealed a stable cardiomegaly and increased bibasilar areas of atelectasis. Patient will be sent home with the antibiotics to address her urinary tract infection and additionally, patient has been advised to follow up with the primary care provider for continued evaluation of long-term chronic issues. Time of 1ST Reevaluation: 01:18 Reevaluation 1ST: Improved Consultation: PCP Patient Education/Counseling: Diagnosis, Treatment Family Education/Counseling: Diagnosis, Treatment, No Family Present Departure 1 Departure Time of Disposition: 01:19 Impression: Primary Impression: Viral pharyngitis Additional Impressions: Agook-py-[id number] kidney injury UTI (urinary tract infection) Acute respiratory distress Chronic pain Disposition: HOME / SELF CARE / HOMELESS Condition: Stable Additional Instructions: Advised patient utilize antibiotics as directed until completion as well as additional medication as needed. Patient should follow up with the primary care provider for discussions related to her multiple chronic comorbidities. e-Prescriptions Hydrocodone-Acetaminophen (Hydrocodone Bitartrate/AC 5-325 mg) 1 Tab Tab 1 TAB PO Q6HP PRN, #15 TAB Prov: MAGGIE BARROSO PAC 02/11/25 Cephalexin (KEFLEX CAPSULE) 250 Mg Cp 1 CAP PO QID for 7 Days, #28 CAP Prov: MAGGIE BARROSO PAC 02/11/25 Discharged With: Self, Friend Critical Care Note Critical Care Time?: No Stability Stability form required: No Heart Score Heart Score: Heart Score Response (Comments) Value History Slightly Suspicious 0 EKG Repolarization Disturb 1 Age >65 2 Risk Factors 1 or 2 risk factors 1 Troponin Normal limit 0 Total 4 I personally scribed for MAGGIE BARROSO PAC ([email or web address]) on 02/10/25 at 18:30. Electronically submitted by Reji Gutiérrez ([email or web address]). MAGGIE BARROSO PAC Feb 10, 2025 18:30
--- NOTE | 2025-02-10 18:44 | ECG ---
[facility] Test Date: 2025-02-10 Test Time: 18:01:56 Pat Name: NAYAN PEPE Department: ED Room: Gender: F Feather Edger: ILA : 1960 Requested By: MAGGIE BARROSO Order Number: [id number] Reading MD: Maximiliano Dubois Measurements Intervals [place] Rate: 79 P: 58 MA: 162 QRS: 0 QRSD: 105 T: 22 QT: 377 QTc: 433 Interpretive Statements Sinus rhythm Atrial premature complex Low voltage, precordial leads RSR' in V1 or V2, right VCD or RVH Electronically Signed On 02-10-2025 21:00:02 PDT by Maximiliano Dubois Please click the below link to view image of tracing.
[2025-02-10] MEDS: IPRATROPIUM BROM 0.5 MG/2.5ML INH SOL NEB ONE (18:59)
[2025-02-10 19:02] LABS: Basophils # (auto) 0.1 10 ^3/uL (0-0.2); Basophils % (auto) 0.7 % (0.0-2.0); Eosinophils # (auto) 0.2 10 ^3/uL (0-0.8); Hematocrit 37.9 % (36.0-46.0); Hemoglobin 12.6 g/dL (12.2-16.2); Lymphocytes # (auto) 2.4 10 ^3/uL (0.4-5.4); Lymphocytes % (auto) 29.3 % (10.0-50.0); Mean Corpuscular Hemoglobin 27.5 pg (28.0-32.0); Mean Corpuscular Hgb Conc. 33.3 g/dL (32.0-36.0); Mean Corpuscular Volume 82.6 fL (80.0-100.0); Monocytes # (auto) 0.6 10 ^3/uL (0-1.3); Monocytes % (auto) 7.8 % (0.0-12.0); Neutrophils # (auto) 4.9 10 ^3/uL (1.6-8.6); Neutrophils % (auto) 60.2 % (37.0-80.0); Nucleated Red Blood Cells % 0.1 %; Platelet Count (auto) 214 10^3/uL (140-450); Red Blood Cells 4.59 10^6/uL (4.0-5.20); Red Cell Distribution Width 15.5 % (11.8-14.3); White Blood Cell 8.2 10^3/uL (4.4-10.8)
[2025-02-10 19:16] LABS: Alanine Aminotransferase 17 U/L (7-40); Alkaline Phosphatase 101 U/L (46-116); Anion Gap 6 (5-15); Aspartate Aminotransferase 16 U/L (13-40); BUN/Creatinine Ratio 23.3 (10.0-20.0); Calcium 9.9 mg/dL (8.7-10.4); Carbon Dioxide 26 mmol/L (20-31); Lipase 39 U/L (12-53); Potassium 4.2 mmol/L (3.5-5.1); Sodium 141 mmol/L (136-145); Total Protein 6.5 g/dL (5.7-8.2)
[2025-02-10 19:17] LABS: Bilirubin, Total 0.4 mg/dL (0.2-1.0)
[2025-02-10 19:28] LABS: Blood Urea Nitrogen 24 mg/dL (9-23); Chloride 109 mmol/L (98-107); Glucose 109 mg/dL (74-106)
--- NOTE | 2025-02-10 20:11 | DVH ---
CHEST RADIOGRAPH Indication: Shortness of breath Technique: Single frontal view of the chest was obtained Comparison: CHEST PORTABLE on DOS: 09/15/22, CXRP on DOS: 09/15/22, EKG on DOS: 09/15/22 FINDINGS: Lines and Tubes: None Lungs: Lung borja demonstrate increased bibasilar atelectasis. Pleura: No effusion. No pneumothorax. Cardiomediastinal contours: Cardiomegaly Bones: No acute osseous abnormality. IMPRESSION: 1. Stable cardiomegaly 2. Increased bibasilar areas of atelectasis. HS:Y
--- NOTE | 2025-02-10 22:12 | DVH ---
Procedure: XY NECK FOR SOFT TISSUE Exam Date: 02/10/2025 09:46 PM History: Dysphagia Comparison Study: None available at time of dictation. Technique: Soft Tissue Neck: AP and lateral views. Findings / Impression: Suboptimal study. Epiglottis appears normal. No radiopaque foreign body noted.
[2025-02-10] MEDS: HYDROMORPHONE HCL 1 MG/ML INJ IM ONE (23:45)
[2025-02-11 01:01] LABS: Urine Bacteria MANY /hpf (None Seen); Urine Blood Negative /uL (Negative); Urine Clarity Clear (Clear); Urine Color Light-Yellow (Yellow); Urine Hyaline Cast FEW /lpf (0 - 2); Urine Mucus FEW (None Seen); Urine Protein, UAD Negative (Negative); Urine Specific Gravity 1.018 (1.001-1.035); Urine Squamous Epithelial Cell FEW /hpf (<5); Urine Urobilinogen Normal (Negative); Urine WBC 8 /HPF (0-5); Urine pH 5.5 (5.0-9.0)
[2025-02-11] MEDS ORDERED: CEPH250C PO (02:45)
[2025-02-11] MEDS ORDERED: HYDR-4902 PO (02:45)
[2025-02-11 03:20] VITALS: BP 133/76; PULSE 67; RESP 19; TEMP 97.8; O2SAT 96
== END 2025-02-11 03:57 | disposition home or self-care (01) ==
LOC: EDBD 17:45 → ER 17:45
DX: J02.8 Acute pharyngitis due to other specified organisms (principal); N39.0 Urinary tract infection, site not specified; G89.29 Other chronic pain; I13.0 Hypertensive heart and chronic kidney disease with heart failure and stage 1 through stage 4 chronic kidney disease, or unspecified chronic kidney disease; N18.9 Chronic kidney disease, unspecified; I50.9 Heart failure, unspecified; R06.03 Acute respiratory distress; F41.9 Anxiety disorder, unspecified; I25.2 Old myocardial infarction; Z86.73 Personal history of transient ischemic attack (TIA), and cerebral infarction without residual deficits; Z88.0 Allergy status to penicillin; Z88.8 Allergy status to other drugs, medicaments and biological substances; Z79.84 Long term (current) use of oral hypoglycemic drugs; Z79.1 Long term (current) use of non-steroidal anti-inflammatories (NSAID); Z79.899 Other long term (current) drug therapy; Z79.02 Long term (current) use of antithrombotics/antiplatelets; Z79.82 Long term (current) use of aspirin
CPT/HCPCS: 36415; 70360; 71045; 80053; 81001; 83690; 83880; 84484; 85025; 93005; 94640